=== PATIENT | male | born 1960 | race Caucasian/White ===

== ENCOUNTER 2018-03-06 10:59 | Emergency (ER) | payer BC ==
[2018-03-06] MEDS: NS 1,000 ML IV ONE (11:47)
--- NOTE | 2018-03-06 11:47 | EDPHY ---
H & P Time Seen by Provider: 03/06/18 11:13 HPI/ROS: This patient describes atraumatic onset of left lumbar pain radiating to his hip and thigh that started 5 days prior to arrival. He sought Ashleigh Sood covering for his primary care physician at [facility] on Friday, x- rays performed that were unremarkable per his report and diagnosed with sciatica. He reports that he was not prescribe medications for this ailment ice apparently the symptoms were not as severe initially but have since worsened with gradual increasing severity to today's 8/10 intensity worse with certain movements. He took a Vicodin last night the left over from a prior element and had partial relief but has not taken any medications today. He came in with his by private vehicle for further evaluation. ROS: Constitutional: No fevers or chills HEENT: No URI symptoms Pulmonary: No shortness of breath Cardiovascular: No chest pain or lightheadedness. GI: No abdominal pain. No nausea vomiting. : No testicular pain, hematuria or dysuria. Neuro: No numbness tingling or focal weakness. No bowel or bladder incontinence Integumentary: No skin rash Infectious: Subjective fever last night. No fever today 10 point review of symptoms is performed and otherwise negative with exception of pertinent positives and negatives listed in HPI and ROS Past Medical/Surgical History: Obesity No prior sciatica Past surgical history-umbilical hernia and cholecystectomy Asthma Gout Smoking Status: Former smoker Physical Exam: General Appearance: Pleasant obese male Alert, mild distress with movement due to severe back pain Eyes: Pupils equal and round no pallor or injection. ENT, Mouth: Mucous membranes moist. Respiratory: There are no retractions, lungs are clear to auscultation. Cardiovascular: Regular rate and rhythm. No murmur gallop or rub Gastrointestinal: Abdomen is soft and nontender, no masses, bowel sounds normal. Back: No midline tenderness. He has left paraspinous muscular tenderness extends in the sciatic notch. Positive straight leg raise on the left side at 10 degrees Neurological: GCS 15. He has 2+ symmetric patellar DTRs. His Achilles DTRs are weak but symmetric bilaterally. He maintains normal light touch sensory exam bilateral lower extremities and 5/5 strength in great toe dorsiflexion and plantar flexion bilaterally. Skin: Warm and dry, no rashes. Musculoskeletal: Neck is supple nontender. Extremities are symmetrical, full range of motion. Psychiatric: Mood and affect are normal DIFFERENTIAL DIAGNOSIS: After history and physical exam differential diagnosis was considered for sciatica, lumbar radiculopathy, the epidural abscess, pyelonephritis, left hip pathology Constitutional: Initial Vital Signs Temperature (C) 37.1 C 03/06/18 11:09 Heart Rate 75 03/06/18 11:09 Respiratory Rate 18 03/06/18 11:09 Blood Pressure 157/90 H 03/06/18 11:09 O2 Sat (%) 94 03/06/18 11:09 O2 Delivery Mode Room Air Allergies/Adverse Reactions: contrast Allergy (Uncoded 03/06/18 11:15) Home Medications: Medication Instructions Recorded Ibuprofen [Motrin (*)] 600 mg PO Q6 PRN #30 tab 03/06/18 Methocarbamol [Robaxin 750 mg (*)] 750 - 1,500 mg PO QID PRN #30 tab 03/06/18 traMADol [Ultram 50 mg (*)] 50 - 100 mg PO Q4 PRN #20 tab 03/06/18 MDM/Departure - MDM Diagnostics: Verbal report of diagnostic studies at [facility] this week showing mild degenerative changes in hip and lumbar spine without other significant abnormalities Medications Given: Discontinued Medications Diazepam (Valium) 5 mg IVP EDNOW ONE Stop: 03/06/18 11:36 Last Admin: 03/06/18 12:25 Dose: Not Given Diazepam (Valium) 5 mg IVP EDNOW ONE Stop: 03/06/18 12:07 Last Admin: 03/06/18 12:26 Dose: Not Given Diazepam (Valium) 5 mg IVP EDNOW ONE Stop: 03/06/18 12:10 Last Admin: 03/06/18 12:15 Dose: 5 mg Diazepam (Valium) 5 mg IVP EDNOW ONE Stop: 03/06/18 12:50 Last Admin: 03/06/18 12:51 Dose: 5 mg Sodium Chloride (Ns) 1,000 mls @ 0 mls/hr IV ONCE ONE; Wide Open PRN Reason: Protocol Stop: 03/06/18 11:39 Last Admin: 03/06/18 11:47 Dose: 1,000 mls Ketorolac Tromethamine (Toradol) 30 mg IVP EDNOW ONE Stop: 03/06/18 11:37 Last Admin: 03/06/18 12:06 Dose: 30 mg Morphine Sulfate (Morphine) 6 mg IVP EDNOW ONE Stop: 03/06/18 11:35 Last Admin: 03/06/18 12:00 Dose: 6 mg ED Course/Re-evaluation: IV morphine, Toradol and Valium with partial relief of patient's symptoms I counseled this patient regarding sciatica and encouraged weight loss. I demonstrated stretches that may assist in his treatment. Will initiate a combination of NSAIDs, methocarbamol muscle relaxant and tramadol as needed for pain control. He will follow up with primary care physician for ongoing symptoms. There is no evidence clinically of cauda equina, radiculopathy with any sensory or motor deficits or other red flag findings. He understands need to return emergency department should he develop worsening symptoms despite treatment plan. - Depart Disposition: Home, Routine, Self-Care Clinical Impression: Sciatica Qualifiers: Laterality: left Qualified Code(s): M54.32 - Sciatica, left side Condition: Fair Instructions: Sciatica (ED) Additional Instructions: Diagnosis: Sciatica Plan: Continue light activity. Avoid bedrest Gentle stretching daily Ibuprofen, methocarbamol and Tylenol for pain as needed. tramadol in addition if needed. No driving, alcohol or work on tramadol. Follow-up with primary care physician Return emergency department for any significant worsening despite the treatment plan Prescriptions: Ibuprofen [Motrin (*)] 600 mg PO Q6 PRN #30 tab PRN Reason: Pain Methocarbamol [Robaxin 750 mg (*)] 750 - 1,500 mg PO QID PRN #30 tab PRN Reason: Muscle Spasms traMADol [Ultram 50 mg (*)] 50 - 100 mg PO Q4 PRN #20 tab PRN Reason: breakthrough pain Referrals: Ondina Ramírez MD [Primary Care Provider] - As per Instructions
[2018-03-06] MEDS ORDERED: DIAZEPAM 5 MG/ML 1 ML SYR ONE ×2 (11:54→12:46)
[2018-03-06] MEDS: KETOROLAC 30 MG/1 ML SDV IVP ONE (12:06)
[2018-03-06] MEDS: DIAZEPAM 10 MG/2 ML SYR IVP ONE ×4 (12:15→12:51)
[2018-03-06 13:59] VITALS: BP 132/78
== END 2018-03-06 13:55 | disposition home or self-care (01) ==
LOC: CED 10:59
DX: M54.32 Sciatica, left side (principal); E66.9 Obesity, unspecified; Z68.42 Body mass index [BMI] 45.0-49.9, adult
CPT/HCPCS: 96374; J1885; J2270; J3360